=== PATIENT | female | born 1955 | race Caucasian/White ===

== ENCOUNTER 2024-10-29 12:55 | Emergency (ER) | payer OTHER, MEDICARE, BC, SELFPAY ==
--- NOTE | ~2024-10-29 | XR_ITS ---
XR lumbar spine 2-3V DATE: 10/29/2024 14:57 INDICATION: Back pain TECHNIQUE: AP, lateral, coned lateral lumbosacral views COMPARISON: None FINDINGS: The lumbar vertebrae are normally aligned. No fracture or bone destruction or spondylolisth esis. Lumbar pedicles are intact. Lumbar and lumbosacral interspaces appear relatively preserved. The re is minimal degenerative spurring. The sacroiliac joints are intact. Osteopenia Abdominal aortic calcification without evidence for aneurysm of the calcified portion. IMPRESSION: Minimal degenerative change Osteopenia Reviewed, dictated and finalized at location A.
[2024-10-29 12:56] VITALS: BP 175/95; PULSE 72; RESP 16; TEMP 36.6; O2SAT 100
--- OUTSIDE RECORDS SUMMARY | 2024-10-29 12:58 | XMS_ITS | Continuity of Care Document ---
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 [facility] , [address], [place], [address], [place]. tel:[phone] Family History Family Member Type Diagnosis Age At Onset No Information Payers Payer name Insurance type Covered libertarian ID Authoriza tion(s) Mail Handlers Benefit Plan Commercial CI [id number] Social History Type Description Quantity Date Captured Comments Sex Female Smoking Status No Information Chief Complaint And Reason For Visit No Information Reason For Referral Reason For Referral No Information History Of Present Illness Encounter Date Complaint History Of Prese nt Illness No Information Functional Status Date Functional Assessmen t No Information Instructions Date Instruction Additional Infor mation No Information Assessments Type Assessment Date No Information Patient Care Teams Name Effective Dates (start - stop) Status Members No Information
--- OUTSIDE RECORDS SUMMARY | 2024-10-29 12:58 | XMS_ITS | Clinical Summary ---
Author Organization [facility] Address [address] [place] [address] Care Team Providers Care Category Consultant Name Role Phone Katerin Lundberg MD Primary Care Provide r Social History Tobacco Use Types Packs/Day Years Used Date Smoking Tobacco: Never Assessed Comments Unknown Sex and Gender Information Value Date Recorded Sex Assigned at Not on file Legal Sex Female 4:24 PM CDT Gender Identity Not on file Sexual Orientation Not on file Plan of Treatment Health Maintenance Due Date Last Done Comments Colorectal Cancer Screening Colonoscopy (10 Years) 1955 PHQ-2 (Physician [place]) 1969 Hepatitis C 1975 Annual Medicare Wellness Visit 2022 COVID-19 Vaccine ( season) 2024 06/10/2023, 05/21/2023, 09/30/2022, Additional history exists Influenza Adult (#1) 2024 07/22/2022, 05/29/2021, 05/30/2020 PHQ-2 (Physician [place]) 08/10/2024 Mammogram Screening 10/06/2025 10/06/2023, 03/20/2022, 03/15/2021, Additional history exists DTaP, Tdap and Td Vaccines (2 - Td or Tdap) 03/05/2028 03/05/2018 RSV Immunization or 60+ Years (1 - 1-dose 75+ series) 2032 Zoster Vaccines Completed 09/12/2019, 06/13/2019 Pneumococcal Vaccine: 65+ Years Completed 10/01/2023, 03/11/2019 Dexa Scan (General) Completed 04/25/2024 Meningococcal B Vaccine Aged Out No l onger eligible based on patient's age to complete this topic Meningococcal Vaccine Aged Out No mariann deshaun eligible based on patient's age to complete this topic RSV Immunizations Under 20 Months Aged Out No longer eligible based on patient's age to complete this topic Procedures Procedure Name Priority Date/Time Associated Diagnosis Comments BONE DENSITY/DEXA Routine 04/25/2024 12: 38 PM CDT Menopause from Last 3 Months or Most Recently Relevant to Health Maintenance Results * BONE DENSITY/DEXA (04/25/2024 12:38 PM CDT) Anatomical Region Laterality Modality Bone Mammography 04/25/2024 12:4 8 PM CDT Impressions 04/25/2024 12:49 PM CDT IMPRESSION: WHO Classification: Osteoporosis RECOMMENDATIONS: All patients should ensure an adequate intake of dietary calcium and vitamin D. The NOF recommend adults under the age of 50 need 1000 mg of calcium and 400-800 IU of vitamin D daily. Effective therapy for the prevention and treatment of osteoporosis include bisphosphonates. FOLLOW-UP: People with diagnosed cases of osteoporosis or at high risk for fracture should have regular bone mineral density test. For patients eligible for Medicare, routine testing is allowed once every 2 years. Testing frequency can be increased to one year for patients who have rapidly progressing disease, those who are receiving or discontinuing medical therapy to restore bone mass, or have additional risk factors. Ordered By: KATERIN LUNDBERG Interpreted By: Nigel De Leon MD, 04/25/2024 12:48 PM Narrative 04/25/2024 12:49 PM CDT [facility] [address] [place] [address] EXAMINATION: BONE DENSITY/DEXA INDICATIONS: Asymptomatic menopausal state COMPARISON: None TECHNIQUE: DEXA bone mineral density evaluation was performed in the AP projection over the lumbar spine and both hips utilizing standard imaging techniques. FINDINGS: The BMD measured at the AP spine L1-L4 is 0.892 g/cm? with a T-score of -1.4. The BMD measured at the left femoral neck is 0.569 g/cm? with a T-score of -2.5. The BMD measured at the left hip is 0.873 g/cm? with a T-score of -0.6. The BMD measured at the right femoral neck is 0.575 g/cm? with a T-score of - 2.5. The BMD measured at the right hip is 0.821 g/cm? with a T-score of -1.0. FRAX 10-year fracture risk: Major Osteoporotic Fracture: 12% Hip Fracture: 2.5% Procedure Note Nigel De Leon MD - 04/25/2024 [facility] [address] [place] [address] EXAMINATION: BONE DENSITY/DEXA INDICATIONS: Asymptomatic menopausal state COMPARISON: None TECHNIQUE: DEXA bone mineral density evaluation was performed in the APprojection over the lumbar spine and both hips utilizing standard imagingtechniques. FINDINGS: The BMD measured at the AP spine L1-L4 is 0.892 g/cm? with a T-score of-1.4. The BMD measured at the left femoral neck is 0.569 g/cm? with a T-score of-2.5. The BMD measured at the left hip is 0.873 g/cm? with a T-score of -0.6. The BMD measured at the right femoral neck is 0.575 g/cm? with a T-scoreof -2.5. The BMD measured at the right hip is 0.821 g/cm? with a T-score of -1.0. FRAX 10-year fracture risk: Major Osteoporotic Fracture: 12% Hip Fracture: 2.5% IMPRESSION: WHO Classification: Osteoporosis RECOMMENDATIONS: All patients should ensure an adequate intake of dietary calcium andvitamin D. The NOF recommend adults under the age of 50 need 1000 mg ofcalcium and 400-800 IU of vitamin D daily. Effective therapy for theprevention and treatment of osteoporosis include bisphosphonates. FOLLOW-UP: People with diagnosed cases of osteoporosis or at high risk for fractureshould have regular bone mineral density test. For patients eligible forMedicare, routine testing is allowed once every 2 years. Testing frequencycan be increased to one year for patients who have rapidly progressingdisease, those who are receiving or discontinuing medical therapy torestore bone mass, or have additional risk factors. Ordered By: KATERIN LUNDBERG Interpreted By: Nigel De Leon MD, 04/25/2024 12:48 PM Katerin Lundberg MD DEXA Final Result from Last 3 Months or Most Recently Relevant to Health Maintenance Insurance [place], [place] [id number] MEDICARE [facility] Care Teams Category Consultant Relationship Specialty Start Date End Date Katerin Lundberg MD [address] [address] PCP - General INTERNAL MEDICINE 04/04/24
--- OUTSIDE RECORDS SUMMARY | 2024-10-29 12:58 | XMS_ITS | Clinical Summary ---
Author Organization [facility] Address [address] [place] [address] Care Team Providers Care Backroom Associate Name Role Phone Katerin Lundberg MD Primary Care Provider Katerin Lundberg MD Unavailable [phone] Fariha Glass Unavailable [phone] Source Comments [facility],non-owned Affiliates and Associated Physician Practices is amultiple site organization consisting of ambulatory clinics and hospital sitesin [place], [place], [place] and [place]. This disclosure is being madepursuant to the Care Everywhere program and may not contain all information available regarding this patient. Last updated 18.[facility] Allergies Active Allergy Reactions Criticality Noted Date Comments Codeine Nausea and/or Vomiting 01/08/2009 Latex Rash Low 01/08/2009 Other 12/30/2013 Unknown anesthesia product Medications * Be aware that medications may not be up to date on this document. Alwaysverify current medications with the patient. Medication Sig Dispensed Refills Start Date End Date Status calcipotriene (Dovonex) 0.005 % creamIndications:Angela que Psoriasis Apply to affected area 2 times daily as needed Reasons: Plaque Psoriasis 09/30/2022 Active Additional Information Patient not taking.Reported on 03/31/2024 betamethasone dipropionate augmented (Diprolene) 0.05 % ointment Apply to affected area 2 times daily 50 g 3 03/31/2024 Active lisinopril (Prinivil; Zestril) 20 MG tabletIndications:Es sential hypertension,Mixed hyperlipidemia Take 1 (one) tablet by mouth once daily 90 tablet 3 03/31/2024 Active rosuvastatin (Crestor) 5 MG tablet Take 1 (one) tablet by mouth once daily 100 tablet 3 04/04/2024 Active Active Problems Problem Noted Date Diagnosed Date 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 Chronic hoarseness 03/11/2019 Overview (03/11/2019): Declines ent scope Non morbid obesity due to excess calories 2014 Overview (07/11/2015): TSH 2014 Preventative health care 07/11/2015 Overview (07/11/2015): Declines all vaccines. Psoriasis 07/11/2015 Essential hypertension 07/11/2015 Overview (07/11/2015): I don't want a diuretic. Due to urge incontinence Diverticulosis of colon 12/30/2013 Mixed hyperlipidemia 08/29/2013 Overview (02/29/2016): According to the Pooled Cohort Risk calculator, the patient's 10 year risk of an atherosclerotic cardiovascular event is 8.7 % as of 02/29/2016. Assessment & Plan (07/13/2015 7:28 AM PARTS SALESMAN): According to the Pooled Cohort Risk calculator, the patient's 10 year risk of an atherosclerotic cardiovascular event is 13 % as of 07/13/2015. Pain of foot 07/26/2013 Resolved Problems Problem Noted Date Diagnosed Date Resolved Date Tobacco abuse 07/11/2015 03/11/2019 Overview (03/05/2018): Declines CT scan lung cancer screening. Urge incontinence of urine 07/11/2015 0 03/11/2019 Encounters Date Type Department Care Team Description 10/20/2024 Travel from Last 3 Months Immunizations Name Administration Dates Next Due COVID PFIZER 12+YR 30MCG/0.3mL 06/10/2023,2022 COVID PFIZER BIVALENT 12Y+ 30mcg/0.3ML Covid Pfizer primary Monovalent 12+ yr 0.3ml Covid Pfizer primary monoval ent 12+ yr 0.3mL Purple cap 07/24/2021 INFLUENZA VACCINE 07/22/2022 INFLUENZA VACCINE, CELL CULT URE, QUADR. (FLUCELVAX QUADRIVALENT; 6MO+) (CCIIV4) 05/29/2021,05/30/2020 MMR 03/11/2019 PNEUMOCOCCAL PCV20 CONJ VAC IM 10/01/2023 PNEUMOCOCCAL PPSV23 03/11/2019 TDAP (7yrs+) 03/05/2018 Zoster Hzv Vacc Recombinant Inj Im 09/12/2019, Family History Medical History Relation Name Comments Cancer - Stomach Father Hypertension Father Cancer - Lung Mother Heart Failure Mother Cancer - Breast Paternal Aunt Cancer - Ovarian Neg Hx Relation Name Status Comments Father Mother Paternal Aunt Social History Tobacco Use Types Packs/Day Years Used Date Smoking Tobacco: Former Cigarettes 1 42.1 0 08/10/1975 - 09/09/2017 Smokeless Tobacco: Never Tobacco Cessation:Counseling Given: No Alcohol Use Standard Drinks/Week Comments Yes 0 (1 standard drink = 0.6 oz pur e alcohol) 1-2 per month PHQ-2 Answer Date Recorded Patient Health Questionnaire-2 Score 0 03/28/2024 Sex and Gender Information Value Date Recorded Sex Assigned at Not on file Gender Identity Not on file Sexual Orientation Not on file Last Filed Vital Signs Vital Sign Reading Time Taken Comments Blood Pressure 109/90 06/20/2024 8:15 AM PARTS SALESMAN Pulse 50 06/20/2024 8:15 AM PARTS SALESMAN Temperature 36.3 C (97.4 F) 06/20/2024 7:49 AM PARTS SALESMAN Respiratory Rate 18 06/20/2024 8:15 AM PARTS SALESMAN Oxygen Saturation 97% 06/20/2024 8:15 AM PARTS SALESMAN Inhaled Oxygen Concentration - - Weight 72.6 kg (160 lb) 06/20/2024 6:56 AM PARTS SALESMAN Height 147.3 cm (4' 10 ) 06/20/2024 6:56 AM PARTS SALESMAN Body Mass Index 33.44 06/20/2024 6:56 AM PARTS SALESMAN Plan of Treatment Upcoming Encounters Date Type Department Care Team (Late st Contact Info) Description 11/03/2024 11:30 AM CDT Appointment [facility] Breast [facility] [address] [place] [address] 04/04/2025 7:40 AM CDT Office Visit [facility] Medical [facility] - Family Medicine [address] [facility] [address] [place] [phone] Katerin Lundberg MD [address] [place] [address] Health Maintenance Due Date Last Done Comments COLOGUARD (AGES 45-75) - COLON CA SCREENING 1955 CT COLONOGRAPHY - COLON CA SCREENING 1955 FIT - COLON CA SCREENING 1955 FLEX SIG - COLON CA SCREENING 1955 COVID-19 VACCINE ( season) 2024 06/10/2023, 05/21/2023, 09/30/2022, Additional history exists INFLUENZA VACCINE (#1) 2024 2, 05/29/2021, 05/30/2020 DEPRESSION SCREENING 08/10/2024 10/01/2023, 09/30/2022, 03/20/2022 MEDICARE AWV 12 MONTHS 10/01/2024 10/01/2023, 09/30/2022 MAMMOGRAM 10/06/2024 10/06/2023, 03/10, 03/15/2021, Additional history exists SCREENING FOR DIABETES 03/31/2027 , 10/01/2023, 03/31/2022, Additional history exists DTAP/TDAP/TD VACCINES (2 - Td or Tdap) 03/05/2028 03/05/2018 COLONOSCOPY - COLON CA SCREENING 06/20/2029 06/20/2024, 06/20/2024, 06/20/2024, Additional history exists Colorectal Cancer Screening 06/20/2029 Respiratory Syncytial Virus (RSV) Vaccine Pt: or over 60 yrs (1 - 1-dose 75+ series) 2032 COLON MONITORING 06/20/2034 06/20/2024, 06/2024, 06/20/2024, Additional history exists HEPATITIS C SCREENING Completed 07/11/2015 ZOSTER VACCINE Completed 09/12/2019, 06/13/2019 PNEUMOCOCCAL VACCINE 50+ Completed 10/01/2023, 09/2018 BONE DENSITY TESTING Completed 04/25/2024, 04/25/2024, 12/01/2018 HEPATITIS B VACCINE Aged Out No longe r eligible based on patient's age to complete this topic HIB VACCINE Aged Out No longer eligi ble based on patient's age to complete this topic HPV VACCINE Aged Out No longer eligi ble based on patient's age to complete this topic LUNG CANCER SCREENING Discontinued MENINGOCOCCAL (Group B) VACCINE SHARED DECISION-MAKING Aged Out No longer eligible based on patient's age to complete this topic MENINGOCOCCAL GROUPS A/C/Y/W VACCINE Aged Out No longer eligible based on patient's age to complete this topic Goals Goal Patient Goal Type Associated Problems Recent Progress Patient-Stated? Author Blood Pressure < 140/90 Blood Pressure 109/90(2023 8:15 AM PARTS SALESMAN) No Eleni Gabriel Quit smoking / using tobacco Lifestyle On track( 022 9:20 AM CDT) No Sangita Sanchez MA Procedures Procedure Name Priority Date/Time Associated Diagnosis Comments ENDOSCOPY, COLON, SCREENING Routine 06/20/2024 6:58 AM PARTS SALESMAN Screening for colon cancer DEXA BONE DENSITY AXIAL SKELETON Routine 04/25/2024 Screening for osteoporosis Menopause COMPREHENSIVE METABOLIC PANEL Routine 03/31/2024 8:29 AM CDT Essential hypertension MAMMO BILAT SCREENING W TORITO Routine 10/06/2023 2:01 PM PARTS SALESMAN Encounter for screening mammogram for malignant neoplasm of breast HEPATITIS C ANTIBODY Routine 07/11/2015 9:24 AM PARTS SALESMAN Lipid screening Need for hepatitis C screening test Tobacco abuse Hypercholesteremia Psoriasis from Last 3 Months or Most Recently Relevant to Health Maintenance Results * Endoscopy, Colon, Screening (06/20/2024 6:58 AM PARTS SALESMAN) Report Endoscopy POC _ Patient Name: Mi Ramos Procedure Date: 06/20/2024 6:58 AM Date of : 1955 Admit Type: Outpatient Age: 68 Gender: Female Ethnicity: Not or Race: White Attending MD: Yasir Maier MD, [id number] _ Procedure: Colonoscopy Indications: Screening for colorectal malignant neoplasm Providers: Yasir Maier MD (Doctor), Lidia Oleary RN, Yuli Becerra RN Referring MD: Katerin Lundberg MD (Referring MD) Medicines: Monitored Anesthesia Care Complications: No immediate complications. _ Estimated Blood Loss: Estimated blood loss: none. Procedure: Pre-Anesthesia Assessment: - Prior to the procedure, a History and Physical was performed, and patient medications and allergies were reviewed. The patient's tolerance of previous anesthesia was also reviewed. The risks and benefits of the procedure and the sedation options and risks were discussed with the patient. All questions were answered, and informed consent was obtained. Prior Anticoagulants: The patient has taken no anticoagulant or antiplatelet agents. ASA Grade Assessment: II - A patient with mild systemic disease. After reviewing the risks and benefits, the patient was deemed in satisfactory condition to undergo the procedure. After I obtained informed consent, the scope was passed under direct vision. Throughout the procedure, the patient's blood pressure, pulse, and oxygen saturations were monitored continuously. The Colonoscope was introduced through the anus and advanced to the cecum, identified by appendiceal orifice and ileocecal valve. The colonoscopy was performed without difficulty. The patient tolerated the procedure well. The quality of the bowel preparation was adequate. The ileocecal valve, appendiceal orifice, and rectum were photographed. Impression: - Diverticulosis. - One 3 mm polyp in the transverse colon, removed with a cold snare. Resected and retrieved. Moderate Sedation: Moderate (conscious) sedation was personally administered by an anesthesia professional. The following parameters were monitored: oxygen saturation, heart rate, blood pressure, respiratory rate, EKG, adequacy of pulmonary ventilation, and response to care. Findings: Diverticula were found in the colon. A 3 mm polyp was found in the transverse colon. The polyp was sessile. The polyp was removed with a cold snare. Resection and retrieval were complete. Estimated blood loss: none. _ Recommendation: - Written discharge instructions were provided to the patient. - The signs and symptoms of potential delayed complications were discussed with the patient. - Patient has a contact number available for emergencies. - Return to normal activities tomorrow. - Resume previous diet. - Continue present medications. - Await pathology results. - Repeat colonoscopy in 5 years for surveillance based on pathology results. Procedure Code(s): --- Professional --- 23426, Colonoscopy, flexible; with removal of tumor(s), polyp(s), or other lesion(s) by snare technique --- Technical --- 03248, Colonoscopy, flexible; with removal of tumor(s), polyp(s), or other lesion(s) by snare technique Diagnosis Code(s): --- Professional --- Z12.11, Encounter for screening for malignant neoplasm of colon D12.3, Benign neoplasm of transverse colon (hepatic flexure or splenic flexure) K57.30, Diverticulosis of large intestine without perforation or abscess without bleeding --- Technical --- Z12.11, Encounter for screening for malignant neoplasm of colon D12.3, Benign neoplasm of transverse colon (hepatic flexure or splenic flexure) K57.30, Diverticulosis of large intestine without perforation or abscess without bleeding CPT copyright 2020 [employer]. All rights reserved. The codes documented in this report are preliminary and upon accounting methods analyst review may be revised to meet current compliance requirements. Yasir Maier MD 06/20/2024 7:49:19 AM This report has been signed electronically. Number of Addenda: 0 Note Initiated On: 06/20/2024 6:58 AM [facility] 06/20/2024 6:58 AM PARTS SALESMAN Yasir Maier MD GI PROCEDURE ORDERAB LES [facility] * Dexa Bone Density Axial Skeleton (04/25/2024) Anatomical Region Laterality Modality Other 04/25/2024 Katerin Lundberg MD DEXA ORDERABLES * COMPREHENSIVE METABOLIC PANEL (03/31/2024 8:29 AM CDT) Glucose 92 70 - 99 mg/dL [facility] INSURANCE BILL BUN 17 8 - 27 mg/dL [facility] INSURANCE BILL Creatinine 0.84 0.57 - 1.00 mg/dL [facility] INSURANCE BILL eGFR by CKD-EPI 77 >59 mL/min/1.7 3 [facility] INSURANCE BILL BUN/Creatinine Ratio 20 12 - 28 [facility] INSURANCE BILL Sodium 139 134 - 144 mmol/L [facility] INSURANCE BILL Potassium 4.9 3.5 - 5.2 mmol/L [facility] INSURANCE BILL Chloride 102 96 - 106 mmol/L [facility] INSURANCE BILL CO2 24 20 - 29 mmol/L [facility] INSURANCE BILL Calcium 9.4 8.7 - 10.3 mg/dL [facility] INSURANCE BILL Protein Total 7.3 6.0 - 8.5 g/dL [facility] INSURANCE BILL Albumin 4.3 3.9 - 4.9 g/dL [facility] INSURANCE BILL Globulin Total 3.0 1.5 - 4.5 g/dL [facility] INSURANCE BILL Bilirubin Total 0.3 0.0 - 1.2 mg/dL [facility] INSURANCE BILL Alkaline Phosphatase 56 44 - 121 IU/L [facility] INSURANCE BILL AST 15 0 - 40 IU/L [facility] INSURANCE BILL ALT 13 0 - 32 IU/L [facility] INSURANCE BILL Comment:FASTING Blood BLOOD SPECIMEN / Unknown 03/31/2024 8:29 AM CDT 03/31/2024 Narrative Resulting Agency Comment [facility] [address] [id number] Katerin Lundberg MD LAB - CHEMISTRY ORDERABLES [facility] INSURANCE BILL [address] [place] [address] * MAMMO BILAT SCREENING W TORITO (10/06/2023 2:01 PM PARTS SALESMAN) Anatomical Region Laterality Modality Breast Bilateral Mammography 10/07/2023 12:2 0 PM PARTS SALESMAN Impressions 10/07/2023 12:22 PM PARTS SALESMAN : Annual screening mammography is recommended. OVERALL FINAL ASSESSMENT: BI-RADS Category 1: Negative. > Interpreting Provider: Fredi Brown MD on 10/07/2023 12:22 PM Narrative 10/07/2023 12:22 PM PARTS SALESMAN EXAMINATION: BILATERAL DIGITAL SCREENING MAMMOGRAM AND BILATERAL BREAST TOMOSYNTHESIS HISTORY: Screening. COMPARISON: Serial examinations dating back to March 11, 2019. TECHNIQUE: BILATERAL digital breast tomosynthesis (DBT) and synthetic 2D digital mammogram images were obtained (bilateral craniocaudal and mediolateral oblique projections) including computer aided detection (CAD.) BREAST PARENCHYMAL COMPOSITION:Category A: The breasts are almost entirely fatty. MAMMOGRAM FINDINGS: There is no suspicious finding in either breast. Katerin Lundberg MD MAMMO ORDERABLE S * HEPATITIS C ANTIBODY (07/11/2015 9:24 AM PARTS SALESMAN) Hepatitis C Antibody Non Reactive Non Reactive [facility] ACCOUNT BILL Comment: Non Reactive - Antibodies to Hepatitis C virus (HCV) were no t detected, result does not exclude early acute HCV infection. Blood specimen (specimen) BLOOD SPECIMEN / Unknown 07/11/2015 9:24 AM PARTS SALESMAN 07/11/2015 1:23 PM PARTS SALESMAN Narrative Resulting Agency Comment [facility] [address] [facility] [address] [facility] [id number] Markos Reyes MD LAB - CHEMISTRY [place] [facility] ACCOUNT BILL from Last 3 Months or Most Recently Relevant to Health Maintenance Care Teams Backroom Associate Relationship Specialty Start Date End Date Katerin Lundberg MD [address] [place] [address] PCP - General Internal Medicine 10/01/23 Katerin Lundberg MD [address] [place] [address] PCP - Attributed-MSSP 11/09/23 Fariha Glass Care Coordination Specialist Care Management 04/27/24
--- OUTSIDE RECORDS SUMMARY | 2024-10-29 12:58 | XMS_ITS ---
Author Organization [facility] Address [address] [place] [address] Care Team Providers Care Hostess Host Name Role Phone Katerin Lundberg MD Primary Care Provider Katerin Lundberg MD Unavailable [phone] Fariha Glass Unavailable [phone] [facility] - [employer] Status:Enrolled (Active) Start date:04/27/2024 Enrollment date:05/10/2024 Enrollment reason:Identified using claims or encounter data Case Team Name Relationship Phone Fariha Glass Care Coordination Specialist(Re sponsible Staff) [phone] Continued Care and Services Coordination
--- OUTSIDE RECORDS SUMMARY | 2024-10-29 13:28 | XMS_ITS | Continuity of Care Document ---
Author Organization [facility] Address [address] [place] [address] Phone Care Team Providers Care New Vehicle Sales Consultant Name Role Phone Kenton Jacob Unavailable Unavailable Advance Directives Directive Yes / No Effective Date File Name No Information Encounters Encounter Description Practice Location Reason(s) For Visit Diagnoses Date Provider Providers Copied on Encounter [facility], [id number] [place] [address] [address], [place], [place], [id number], [place] tel:[phone] [address] [facility] No Information [address] [facility] , [address], [place], [address], [place]. tel:[phone] Family History Family Member Type Diagnosis Age At Onset No Information Payers Payer name Insurance type Covered constitution party ID Authoriza tion(s) Mail Hand[employer] Benefit Plan Commercial CI [id number] Social History Type Description Quantity Date Captured [...]
--- OUTSIDE RECORDS SUMMARY | 2024-10-29 13:28 | XMS_ITS | Clinical Summary ---
Author Organization [facility] Address [address] [place] [address] Care Team Providers Care Results Technician Name Role Phone Katerin Lundberg MD Primary [...] Screening Colonoscopy (10 Years) 1955 PHQ-2 (Physician Andreafski) 1969 Hepatitis C 1975 Annual Medicare Wellness Visit 2022 COVID-19 Vaccine ( season) 2024 06/10/2023, 05/21/2023, 09/30/2022, Additional history exists Influenza Adult (#1) 2024 07/22/2022, 05/29/2021, 05/30/2020 PHQ-2 (Physician Andreafski) 08/10/2024 Mammogram Screening 10/06/2025 10/06/2023, 03/20/2022, 03/15/2021, [...] 12:48 PM Narrative 04/25/2024 12:49 PM CDT [facility] [address] [place] [address] EXAMINATION: BONE DENSITY/DEXA INDICATIONS: Asymptomatic menopausal state [...] Note Nigel De Leon MD - 04/25/2024 [facility] [address] [place] [address] EXAMINATION: BONE DENSITY/DEXA INDICATIONS: Asymptomatic menopausal state [...] Most Recently Relevant to Health Maintenance Insurance [place], [place] [id number] MEDICARE [facility] Care Teams Results Technician Relationship Specialty Start Date End Date Katerin Lundberg MD [address] [address] PCP - General INTERNAL MEDICINE 04/04/24
--- OUTSIDE RECORDS SUMMARY | 2024-10-29 13:28 | XMS_ITS | Clinical Summary ---
Author Organization [facility] [employer] Address [address] [place] [address] Care Team Providers Care Gas System Operator Name Role Phone Katerin Lundberg MD Primary Care Provider Katerin Lundberg MD Unavailable [phone] Fariha Glass Unavailable [phone] Source Comments [facility],non-owned Affiliates and Associated Physician Practices is amultiple site organization consisting of ambulatory clinics and hospital sitesin [place], [place], [place] and [place]. This disclosure is being madepursuant to the Care Everywhere program and may not contain all information available regarding this patient. Last updated 18.[facility] Allergies Active Allergy Reactions Criticality Noted Date [...] 02/29/2016. Assessment & Plan (07/13/2015 7:28 AM OPHTHALMIC PATHOLOGIST): According to the Pooled Cohort Risk calculator, [...] Comments Blood Pressure 109/90 06/20/2024 8:15 AM OPHTHALMIC PATHOLOGIST Pulse 50 06/20/2024 8:15 AM OPHTHALMIC PATHOLOGIST Temperature 36.3 C (97.4 F) 06/20/2024 7:49 AM OPHTHALMIC PATHOLOGIST Respiratory Rate 18 06/20/2024 8:15 AM OPHTHALMIC PATHOLOGIST Oxygen Saturation 97% 06/20/2024 8:15 AM OPHTHALMIC PATHOLOGIST Inhaled Oxygen Concentration - - Weight 72.6 kg (160 lb) 06/20/2024 6:56 AM OPHTHALMIC PATHOLOGIST Height 147.3 cm (4' 10 ) 06/20/2024 6:56 AM OPHTHALMIC PATHOLOGIST Body Mass Index 33.44 06/20/2024 6:56 AM OPHTHALMIC PATHOLOGIST Plan of Treatment Upcoming Encounters Date Type Department Care Team (Late st Contact Info) Description 11/03/2024 11:30 AM CDT Appointment [facility] Breast [facility] [address] [facility] [address] [place] [address] 04/04/2025 7:40 AM CDT Office Visit [facility] Medical [facility] [address], [facility] [address] [place] [phone] Katerin Lundberg MD [address] [place] [address] Health Maintenance Due Date Last [...] < 140/90 Blood Pressure 109/90(2023 8:15 AM OPHTHALMIC PATHOLOGIST) No Eleni Gabriel Quit smoking / using tobacco Lifestyle On track( 022 9:20 AM CDT) No Sangita Sanchez MA Procedures Procedure Name Priority Date/Time Associated Diagnosis Comments ENDOSCOPY, COLON, SCREENING Routine 06/20/2024 6:58 AM OPHTHALMIC PATHOLOGIST Screening for colon cancer DEXA BONE DENSITY AXIAL SKELETON Routine 04/25/2024 Screening for osteoporosis Menopause COMPREHENSIVE METABOLIC PANEL Routine 03/31/2024 8:29 AM CDT Essential hypertension MAMMO BILAT SCREENING W TORITO Routine 10/06/2023 2:01 PM OPHTHALMIC PATHOLOGIST Encounter for screening mammogram for malignant neoplasm of breast HEPATITIS C ANTIBODY Routine 07/11/2015 9:24 AM OPHTHALMIC PATHOLOGIST Lipid screening Need for hepatitis C screening test Tobacco abuse Hypercholesteremia Psoriasis from Last 3 Months or Most Recently Relevant to Health Maintenance Results * Endoscopy, Colon, Screening (06/20/2024 6:58 AM OPHTHALMIC PATHOLOGIST) Report Endoscopy POC _ Patient Name: Mi Ramos Procedure Date: 06/20/2024 6:58 AM Date of : 1955 Admit Type: Outpatient Age: 68 Gender: Female Ethnicity: Not or Race: White Attending MD: Yasir Maier MD, [id number] _ Procedure: Colonoscopy Indications: Screening for colorectal [...] pathology results. Procedure Code(s): --- Professional --- 06075, Colonoscopy, flexible; with removal of tumor(s), polyp(s), or other lesion(s) by snare technique --- Technical --- 74592, Colonoscopy, flexible; with removal of tumor(s), polyp(s), [...] or abscess without bleeding CPT copyright 2020 [employer]. All rights reserved. The codes documented in this report are preliminary and upon post splitter review may be revised to meet current compliance requirements. Yasir Maier MD 06/20/2024 7:49:19 AM This report has been signed electronically. Number of Addenda: 0 Note Initiated On: 06/20/2024 6:58 AM [facility] ENDOSCOPY 06/20/2024 6:58 AM OPHTHALMIC PATHOLOGIST Yasir Maier MD GI PROCEDURE ORDERAB LES [facility] ENDOSCOPY * Dexa Bone Density Axial Skeleton [...] Resulting Agency Comment Lab Testing performed at: [facility] [address] [facility] [id number] Katerin Lundberg MD LAB - CHEMISTRY ORDERABLES [facility] INSURANCE BILL [address] [place] [address] * MAMMO BILAT SCREENING W TORITO (10/06/2023 2:01 PM OPHTHALMIC PATHOLOGIST) Anatomical Region Laterality Modality Breast Bilateral Mammography 10/07/2023 12:2 0 PM OPHTHALMIC PATHOLOGIST Impressions 10/07/2023 12:22 PM OPHTHALMIC PATHOLOGIST : Annual screening mammography is recommended. OVERALL FINAL ASSESSMENT: BI-RADS Category 1: Negative. > Interpreting Provider: Fredi Brown MD on 10/07/2023 12:22 PM Narrative 10/07/2023 12:22 PM OPHTHALMIC PATHOLOGIST EXAMINATION: BILATERAL DIGITAL SCREENING MAMMOGRAM AND BILATERAL [...] * HEPATITIS C ANTIBODY (07/11/2015 9:24 AM OPHTHALMIC PATHOLOGIST) Hepatitis C Antibody Non Reactive Non Reactive [facility] ACCOUNT BILL Comment: Non Reactive - Antibodies to Hepatitis C virus (HCV) were no t detected, result does not exclude early acute HCV infection. Blood specimen (specimen) BLOOD SPECIMEN / Unknown 07/11/2015 9:24 AM OPHTHALMIC PATHOLOGIST 07/11/2015 1:23 PM OPHTHALMIC PATHOLOGIST Narrative Resulting Agency Comment [facility] [address] [facility] [id number] Markos Reyes MD LAB - CHEMISTRY [place] [facility] ACCOUNT BILL from Last 3 Months or Most Recently Relevant to Health Maintenance Care Teams Gas System Operator Relationship Specialty Start Date End Date Katerin Lundberg MD [address] [place] [address] PCP - General Internal Medicine 10/01/23 Katerin Lundberg MD [address] [place] [address] PCP - Attributed-MSSP 11/09/23 Fariha Glass Care Coordination Specialist Care Management 04/27/24
--- OUTSIDE RECORDS SUMMARY | 2024-10-29 13:28 | XMS_ITS ---
Author Organization [facility] Address [address] [facility] [place] [address] Care Team Providers Care Business Manager Name Role Phone Katerin Lundberg MD Primary Care Provider Katerin Lundberg MD Unavailable [phone] Fariha Glass Unavailable [phone] [facility] [employer] Status:Enrolled (Active) Start date:04/27/2024 Enrollment date:05/10/2024 Enrollment reason:Identified using claims or encounter data Case Team Name Relationship Phone Fariha Glass Care Coordination Specialist(Re sponsible Staff) [phone] Continued Care and Services Coordination
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
[2024-10-29] MEDS: LORazepam (*CRX) 1 MG TABLET PO (14:34)
[2024-10-29] MEDS: CYCLOBENZAPRINE HCL 10 MG TABLET PO (14:34)
[2024-10-29] MEDS: KETOROLAC 30 MG/ML VIAL (*BKC) IM (14:34)
== END 2024-10-29 16:31 | disposition home or self-care (01) ==
PROVIDERS: Emergency Provider Emergency Medicine
DX: S39.92XA Unspecified injury of lower back, initial encounter (principal); I10 Essential (primary) hypertension; Z87.891 Personal history of nicotine dependence; Z90.710 Acquired absence of both cervix and uterus; M85.88 Other specified disorders of bone density and structure, other site; V49.40XA Driver injured in collision with unspecified motor vehicles in traffic accident, initial encounter
CPT/HCPCS: 72100; 96372; 99283; A9270; J1885